=== PATIENT | female | born 1945 | race Hispanic/Latino ===

== ENCOUNTER 2019-06-06 08:46 | Emergency (ER) | payer MEDICARE ==
[~2019-06-06] VITALS: Ht 160 cm; Wt 69.4 kg
--- NOTE | 2019-06-06 09:34 | Diagnostic Imaging Report ---
Radiographs of the left hand HISTORY: Pain COMPARISON: None available. FINDINGS: Bones: Comminuted intra-articular displaced distal left radius fracture. Transverse fracture at the base of the ulnar styloid. Osseous alignment is within normal limits. Joints: Scattered degenerative change. No osseous erosion Soft tissues: The soft tissues appear unremarkable. IMPRESSION: Comminuted intra-articular displaced distal left radius fracture. Transverse fracture at the base of the ulnar styloid. Signed by: Dr. Anjum Mauricio M.D. on 06/06/2019 9:32 AM
--- NOTE | 2019-06-06 09:38 | Diagnostic Imaging Report ---
Radiographs of the left wrist HISTORY: Pain COMPARISON: None available. FINDINGS: Bones: Comminuted intra-articular displaced distal left radius fracture. Transverse fracture at the base of the ulnar styloid. Osseous alignment is within normal limits. Joints: Scattered degenerative change. No osseous erosion Soft tissues: The soft tissues appear unremarkable. IMPRESSION: Comminuted intra-articular displaced distal left radius fracture. Transverse fracture at the base of the ulnar styloid. Signed by: Dr. Anjum Mauricio M.D. on 06/06/2019 9:35 AM
[2019-06-06] MEDS ORDERED: TYLENOL WITH C1 EACH PO (09:51)
[2019-06-06 10:08] VITALS: BP 136/78
== END 2019-06-06 10:04 | disposition home or self-care (01) ==
LOC: FSED 08:46
DX: S52.325A Nondisplaced transverse fracture of shaft of left radius, initial encounter for closed fracture (principal); S52.225A Nondisplaced transverse fracture of shaft of left ulna, initial encounter for closed fracture; W01.0XXA Fall on same level from slipping, tripping and stumbling without subsequent striking against object, initial encounter; Y92.008 Other place in unspecified non-institutional (private) residence as the place of occurrence of the external cause
CPT/HCPCS: 99284